=== PATIENT | female | born 1995 | race Hispanic/Latino ===

== ENCOUNTER 2024-04-14 21:33 | Emergency (ER) | payer SELFPAY ==
[~2024-04-14] VITALS: Ht 160 cm; Wt 49.9 kg
[2024-04-14 21:35] VITALS: BP 116/76; PULSE 129; RESP 20; TEMP 100.6
--- NOTE | 2024-04-14 21:59 | ERN ---
General Chief Complaint: Cough Stated Complaint: C/O COUGH, SORE THROAT, FEVER, CHILLS, BODYACHES Time Seen by MD: 21:40 Source: patient History of Present Illness Initial Comments Patient is a 29-year-old female coming in due to URI symptoms. Patient states that the symptoms began two days ago. Some of the symptoms include cough nasal congestion body aches and sore throat. Patient has been seen by her PCP yet. Allergies: Coded Allergies: No Known Drug Allergies (Unverified Allergy, Unknown, 04/09/19) Home Meds No Active Prescriptions or Reported Meds Past Medical History Past Medical History: No Pertinent History Past Surgical History: Female( History) LMP: Apr 01, 2024 ROS Dictation CONSTITUTIONAL: No chills, no fever, no weakness, no diaphoresis, no malaise. HEAD/FACE: No signs of trauma. EENT: No eye pain, no blurred vision, no tearing, no double vision, no ear pain, no ear discharge, no nose pain, no nasal congestion, no throat pain, no throat swelling, no mouth pain. RESPIRATORY: No cough, no orthopnea, no SOB, no stridor, no wheezing. CARDIOVASCULAR: No chest pain, no edema, no palpitations, no syncope. GASTROINTESTINAL/ABDOMINAL: No abdominal pain, no constipation, no diarrhea, no nausea, no vomiting. GENITOURINARY: No abnormal discharge, no dysuria, no frequent urination, no hematuria. No complaints of pain in the genitals. MUSCULOSKELETAL: No back pain, no gout, no joint pain, no joint swelling, no muscle pain, no muscle stiffness, no neck pain. INTEGUMENTARY: No change in color, no change in hair/nails, no dryness, no lesion, no lumps, no rash. NEUROLOGICAL/PSYCH: No anxiety, not depressed, no emotional problem, no headache, no numbness, no pre-existing deficit, no history of seizures, no tremors, no weakness. HEMATOLOGIC/LYMPHATIC: Not anemic, no history of blood clots, no apparent bleeding, no bruising, glands not swollen. All Systems Negative, Except as Noted. Physical Exam Physical Exam Dictation VITAL SIGNS: Reviewed. GENERAL APPEARANCE: Alert, oriented x3, no acute distress, obese. HEAD AND FACE: Non-traumatic. EYES: PERRL, pink conjunctivas, eyelid no trauma, anterior chamber clear. EARS: Pinnas intact and no signs of trauma or erythema. Ear canals clear and no discharge. TMs no erythema. NOSE: No discharge, no bleeding. OROPHARYNX: Mouth normal, teeth no caries, tongue pink. Pharynx clear, no erythema. Tonsils no exudates, no abscesses noted. Mucous membrane moist. NECK: Supple, non-tender, no thyromegaly, no masses, no JVD, no bruits. BREAST: Deferred. CHEST: No tenderness, no crepitus, no paradoxical movement, no retractions. LUNGS: Clear, well-ventilated, symmetric, no rales, no wheezing, no rhonchi, no stridor, good breath sounds bilaterally. HEART: Regular rate, regular rhythm, no murmur, no gallops. VASCULAR: No peripheral edema. ABDOMEN: Soft, positive bowel sounds, nondistended, no guarding, nontender, no rebound, no masses no hepatomegaly, no splenomegaly, no Ziegler's sign, no hernias. RECTAL: Deferred. GENITAL: Deferred. NEUROLOGICAL: Normal speech, gross motor function intact, gross sensory function intact. MUSCULOSKELETAL: Neck nontender, full range of motion, back nontender, full range of motion. EXTREMITIES: Nontender, full range of motion. SKIN: Color pink, dry, no turgor, no rash, no lacerations, no abrasions, no c ontusions. LYMPHATICS: Deferred. Results Laboratory and Microbiology Labs Reviewed?: Yes MDM MDM: Differential diagnosis: URI, flu, COVID, strep ED Course Orders Procedure Category Date Status Time Covid Rna Naat LAB 04/14/24 Verified 21:50 Influenza Type A & B, LAB 04/14/24 Verified Rapid 21:50 Rapid (Group A Strep) LAB 04/14/24 Verified 21:50 Vital Signs Date Time Temp Pulse Resp B/P (MAP) Pulse Ox O2 Delivery O2 Flow Rate FiO2 04/14/24 21:35 100.6 129 20 116/76 95 Room Air DX & DISP Departure Condition: Stable Scripts No Active Prescriptions or Reported Meds Referrals: SELF,REFERRAL (PCP) GUIDO GARRIDO MD Apr 14, 2024 21:59
--- NOTE | 2024-04-14 22:05 | NUR ---
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 PT NOT BACK YET.
--- NOTE | 2024-04-14 22:31 | NUR ---
CALLED FOR PT IN LOBBY AGAIN, NO RESPONSE; PT NOT FOUND IN LOBBY.
[2024-04-14 23:14] LABS: RAPID GROUP A STREP negative (NEGATIVE)
[2024-04-14 23:16] LABS: SARS-CoV-2, RNA, NAAT NEGATIVE SARS CoV-2 (NEGATIVE)
[2024-04-14 23:24] LABS: INFLUENZA TYPE A Negative For Type A (NEGATIVE); INFLUENZA TYPE B Negative For Type B (NEGATIVE)
== END 2024-04-14 22:31 | disposition left against medical advice (07) ==
LOC: EDH 21:39
DX: R05.9 Cough, unspecified (principal); J02.9 Acute pharyngitis, unspecified; R50.9 Fever, unspecified; Z20.822 Contact with and (suspected) exposure to COVID-19
CPT/HCPCS: 87635; 87804; 87880; 99283

== ENCOUNTER 2024-08-19 20:50 | Emergency (ER) | payer SELFPAY ==
[~2024-08-19] VITALS: Ht 157.5 cm; Wt 54.0 kg
--- NOTE | 2024-08-19 21:09 | ERN ---
ED Note History of Present Illness Stated Complaint: BACK PAIN,DISCHARGE Time Seen by MD: 20:51 Dictation: PATIENT IS A 29-YEAR-OLD FEMALE COMING IN TODAY WITH COMPLAINTS OF BACK PAIN AND STATES SHE FELT �A GUSH OF WATER COME OUT OF HER THIS MORNING�. SHE STATES SHE IS BETWEEN 14 AND 15 WEEKS , NO CARE, HAS NOT APPOINTMENT WITH DR. BECK/TE[employer] SUPPORT INTERNS[employer] ON SUNDAY. DENIES VAGINAL BLEEDING. Allergies: Coded Allergies: No Known Drug Allergies (Unverified Allergy, Unknown, 04/09/19) Home Meds No Active Prescriptions or Reported Meds Past Medical History Past Medical History: No Pertinent History Surgical History: : 4 Para: 3 Aborts: 0 RN Note Reviewed/Agreed w/PFSH: Yes Review of System Dictation CONSTITUTIONAL: NEGATIVE EXCEPT FOR HPI HEAD/FACE: NEGATIVE EXCEPT FOR HPI EENT: NEGATIVE EXCEPT FOR HPI RESPIRATORY: NEGATIVE EXCEPT FOR HPI GASTROINTESTINAL/ABDOMINAL: NEGATIVE EXCEPT FOR HPI GENITOURINARY: NEGATIVE EXCEPT FOR HPI VAGINAL DISCHARGE MUSCULOSKELETAL: NEGATIVE EXCEPT FOR HPI BACK PAIN INTEGUMENTARY: NEGATIVE EXCEPT FOR HPI NEUROLOGICAL/PSYCH: NEGATIVE EXCEPT FOR HPI HEMATOLOGIC/LYMPHATIC: NEGATIVE EXCEPT FOR HPI ALL SYSTEMS NEGATIVE, EXCEPT NOTED ABOVE. 13 POINT REVIEW OF SYSTEMS ASSESSED AND ALL NEGATIVE EXCEPT FOR ABOVE. Initial Vital Sign VS Vital Signs Date Time Temp Pulse Resp B/P (MAP) Pulse Ox O2 Delivery O2 Flow Rate FiO2 08/19/24 21:08 99.0 86 20 98/65 Room Air 08/19/24 22:16 99 0 21 Physical Exam Dictation VITAL SIGNS REVIEWED GENERAL APPEARANCE: ALERT, ORIENTED X 3, NO ACUTE DISTRESS, WELL DEVELOPED, NOURISHED. HEAD AND FACE: NON-TRAUMATIC. EYES: PERRL, PINK CONJUNCTIVAS, EYELID NO TRAUMA, ANTERIOR CHAMBER WITH ARCUS SENILIS. EARS: PINNAS INTACT AND NO SIGNS OF TRAUMA OR ERYTHEMA EAR CANALS CLEAR AND NO DISCHARGE TM NO ERYTHEMA NOSE: NO DISCHARGE, NO BLEEDING. OROPHARYNX: MOUTH NORMAL, TONGUE PINK, PHARYNX CLEAR,NO ERYTHEMA, TONSILS NO EXUDATES, NO ABSCESSES NOTED, MUCOUS MEMBRANE MOIST NECK: SUPPLE, NON-TENDER, NO THYROMEGALY, NO MASSES, NO JVD, NO BRUITS BREAST:DEFERRED CHEST:NO TENDERNESS, NO CREPITUS, NO PARADOXICAL MOVEMENT, NO RETRACTIONS LUNGS:CLEAR, WELL-VENTILATED, SYMMETRIC, NO RALES, NO WHEEZING, NO RHONCHI, NO STRIDOR, GOOD BREATH SOUNDS BILATERALLY HEART: REGULAR RATE, REGULAR RHYTHM, NO MURMUR, NO GALLOPS VASCULAR: NO PERIPHERAL EDEMA, ABDOMEN: SOFT, POSITIVE BOWEL SOUNDS, NONDISTENDED, NO GUARDING, NONTENDER, NO REBOUND, NO MASSES NO HEPATOMEGALY, NO SPLENOMEGALY, NO CISNERSO'S SIGN, NO HERNIAS. RECTAL: DEFERRED GENITAL: DEFERRED NEUROLOGICAL: NORMAL SPEECH, MOTOR FUNCTION INTACT, SENSORY FUNCTION INTACT MUSCULOSKELETAL: NECK NONTENDER, FULL RANGE OF MOTION, BACK NONTENDER, FULL RANGE OF MOTION, EXTREMITIES: NONTENDER, FULL RANGE OF MOTION SKIN: COLOR PINK, DRY, NO TURGOR, NO RASH, NO LACERATIONS, NO ABRASIONS, NO CONTUSIONS. LYMPHATIC: DEFERRED Results (Laboratory/Radiology) Laboratory/Radiology Laboratory Tests Test 08/19/24 21:58 08/19/24 22:16 White Blood Count 8.8 K/uL (4.8-10.8) Red Blood Count 4.25 MIL/uL (4.00-5.50) Hemoglobin 11.6 g/dL (12.0-16.0) L Hematocrit 34.3 % (36-48) L Mean Corpuscular Volume 80.7 fL (79-99) Mean Corpuscular Hemoglobin 27.3 pg (27.0-33.0) Mean Corpuscular Hemoglobin Concent 33.8 g/dL (32.0-36.0) Red Cell Distribution Width 13.0 % (11.0-15.5) Platelet Count 241 K/uL (130-400) Mean Platelet Volume 9.9 fL (7.5-10.5) Immature Granulocyte % (Auto) 0.3 % (0-1) Neutrophils (%) (Auto) 73.4 % (40.0-77.0) Lymphocytes (%) (Auto) 19.5 % (21.0-51.0) L Monocytes (%) (Auto) 4.6 % (3.0-13.0) Eosinophils (%) (Auto) 1.9 % (0.0-8.0) Basophils (%) (Auto) 0.3 % (0.0-5.0) Neutrophils # (Auto) 6.5 K/uL (1.8-7.7) Lymphocytes # (Auto) 1.7 K/uL (1.0-4.8) Monocytes # (Auto) 0.4 K/uL (0.1-1.0) Eosinophils # (Auto) 0.17 K/uL (0.00-0.70) Basophils # (Auto) 0.03 K/uL (0.00-0.20) Absolute Immature Granulocyte (auto 0.03 K/uL (0-1) Nucleated Red Blood Cells 0.0 % (0.0-0.19) Sodium Level 137 mmol/L (136-145) Potassium Level 3.5 mmol/L (3.5-5.1) Chloride Level 105 mmol/L (101-111) Carbon Dioxide Level 24 mmol/L (21-32) Blood Urea Nitrogen 11 mg/dL (7-18) Creatinine 0.6 mg/dL (0.5-1.0) Glomerular Filtration Rate Calc 125 mL/min (>90) Random Glucose 81 mg/dL (70-105) Total Calcium 9.0 mg/dL (8.5-10.1) Urine Color YELLOW (YELLOW) Urine Appearance CLEAR (CLEAR) Urine pH 6.0 (5.0-8.0) Urine Specific [place] 1.024 (1.001-1.031) Urine Protein NEGATIVE mg/dL (NEGATIVE) Urine Glucose (UA) NEGATIVE mg/dL (NEGATIVE) Urine Ketones 20 mg/dL (NEGATIVE) H Urine Occult Blood NEGATIVE (NEGATIVE) Urine Nitrate NEGATIVE (NEGATIVE) Urine Bilirubin NEGATIVE mg/dL (NEGATIVE) Urine Urobilinogen 0.2 mg/dL (0.2-1.0) Urine Leukocyte Esterase NEGATIVE Kitty/uL ULTRASOUND OB LIMITED INDICATION: Pelvic cramping. TECHNIQUE: Real-time transabdominal approach ultrasound examination of the pelvis was performed by the paralegal supervisor, and images subsequently made available for review. COMPARISON: None FINDINGS: Single live intrauterine gestation in longitudinal lie and breech presentation. heart rate = 167 beats per minute. Anterior grade 1 placenta without previa demonstrated. The amniotic fluid volume is normal at 9.6 cm. Limited anatomy secondary to early gestational age. Estimated sonographic gestational age = 15 weeks 0 days +/- 9 weeks. Estimated weight = 113 grams +/- 17 grams. IMPRESSION: 1. Single live intrauterine gestation in breech presentation, and with heart rate of 167 bpm. 2. Parameters as reported. Labs Reviewed?: Yes ED Course ED Course Orders Procedure Category Date Status Time Cbc With Differential LAB 08/19/24 Complete 21:06 Hcg,Quantitative LAB 08/19/24 In Process 21:06 Us Ob <14 Weeks US 08/19/24 Resulted 21:06 Type And Screen BBK 08/19/24 Complete 21:06 Basic Metabolic Panel LAB 08/19/24 In Process 21:06 Urinalysis Profile LAB 08/19/24 Complete 22:24 Vital Signs Date Time Temp Pulse Resp B/P (MAP) Pulse Ox O2 Delivery O2 Flow Rate FiO2 08/19/24 22:16 98.2 75 18 100/62 99 Room Air* 0 21 08/19/24 21:08 99.0 86 20 98/65 Room Air 2258/PATIENT 15 WEEKS 0 DAYS STRONG HEART TONES. DISCHARGED HOME TO FOLLOW UP WITH HER TECHNICAL SUPPORT INTERNSHIP DOCTOR IN THE NEXT 1-2 DAYS. Medical Decision Making MDM MEDICAL DISCHARGE MAKING BASED ON LABS FOR TO INCLUDE ULTRASOUND ULTRASOUND W STATES VIABLE IUP LABS ARE UNREMARKABLE PATIENT TOLD TYLENOL ONLY FOR PAIN, SEE HER TECHNICAL SUPPORT INTERNSHIP DOCTOR IN THE NEXT 1-2 DAYS. DX & DISP Disposition: Discharge Departure Impression: Primary Impression: Abdominal pain in Condition: Stable Scripts No Active Prescriptions or Reported Meds Additional Instructions: FOLLOW-UP WITH PRIMARY CARE PROVIDER IN 1 TO 2 DAYS. TAKE MEDICATIONS DIRECT ED HERE IN THE EMERGENCY ROOM. OKAY TO CONTINUE HOME MEDICATIONS UNLESS OTHERWISE DISCUSSED DURING YOUR VISIT IN THE EMERGENCY ROOM TODAY. RETURN TO YOUR NEAREST EMERGENCY ROOM IF SYMPTOMS WORSEN OR IF THERE IS NO IMPROVEMENT. CALL 911 IF YOU NEED IMMEDIATE ASSISTANCE. TAKE TYLENOL IMPG-AEC-NEXGYLH NEEDED AND IF NO CONTRAINDICATIONS ARE PRESENT. INCREASE ORAL HYDRATION. A WOUND CULTURE OR URINE CULTURE WAS ORDERED HERE IN THE EMERGENCY ROOM DEPARTMENT PLEASE FOLLOW-UP WITH PRIMARY CARE PROVIDER AND ADVISE THEM TO GET REPEAT PORTS FROM OUR FACILITY. IF YOU HAD ANY EDMUNDO WRAP/SPLINTS THAT WERE APPLIED HERE, PLEASE DO NOT REMOVE THEM UNTIL YOU SEE YOUR PRIMARY CARE OR SPECIALTY. PELVIC REST, NO SEX OF ANY KIND., TYLENOL ONLY FOR PAIN. CONTINUE YOUR VITAMINS. FOLLOW UP WITH THE YOUR TECHNICAL SUPPORT INTERNSHIP DOCTOR IN THE NEXT 1-2 DAYS FOR MANAGEMENT. Referrals: SELF,REFERRAL (PCP) Time of Disposition: 22:59 I have reviewed the case, and I agree with, Diagnosis and Plan [facility] [employer] August 19, 2024 21:09
--- NOTE | 2024-08-19 21:54 | HMCIMG ---
ULTRASOUND OB LIMITED INDICATION: Pelvic cramping. TECHNIQUE: Real-time transabdominal approach ultrasound examination of the pelvis was performed by the sales administration specialist, and images subsequently made available for review. COMPARISON: None FINDINGS: Single live intrauterine gestation in longitudinal lie and breech presentation. heart rate = 167 beats per minute. Anterior grade 1 placenta without previa demonstrated. The amniotic fluid volume is normal at 9.6 cm. Limited anatomy secondary to early gestational age. Estimated sonographic gestational age = 15 weeks 0 days +/- 9 weeks. Estimated weight = 113 grams +/- 17 grams. IMPRESSION: 1. Single live intrauterine gestation in breech presentation, and with heart rate of 167 bpm. 2. Parameters as reported.
--- NOTE | 2024-08-19 22:15 | NUR ---
PATIENT CAME BACK TO RM [address] [facility]
[2024-08-19 22:16] VITALS: BP 100/62; PULSE 75; RESP 18; TEMP 98.2; O2SAT 99
[2024-08-19 22:18] LABS: BASOPHILS # (AUTO) 0.03 K/uL (0.00-0.20); BASOPHILS % (AUTO) 0.3 % (0.0-5.0); EOSINOPHILS # (AUTO) 0.17 K/uL (0.00-0.70); EOSINOPHILS % (AUTO) 1.9 % (0.0-8.0); HEMATOCRIT 34.3 % (36-48); IMMATURE GRANULOCYTE ABSOLUTE 0.03 K/uL (0-1); LYMPHOCYTES # (AUTO) 1.7 K/uL (1.0-4.8); LYMPHOCYTES % (AUTO) 19.5 % (21.0-51.0); MEAN CORPUSCULAR HEMOGLOBIN 27.3 pg (27.0-33.0); MEAN CORPUSCULAR HGB CONC 33.8 g/dL (32.0-36.0); MEAN CORPUSCULAR VOLUME 80.7 fL (79-99); MONOCYTES # (AUTO) 0.4 K/uL (0.1-1.0); MONOCYTES % (AUTO) 4.6 % (3.0-13.0); NEUTROPHILS # (AUTO) 6.5 K/uL (1.8-7.7); NEUTROPHILS % (AUTO) 73.4 % (40.0-77.0); PLATELET COUNT (AUTO) 241 K/uL (130-400); RED BLOOD CELL COUNT(AUTO) 4.25 MIL/uL (4.00-5.50); WHITE BLOOD COUNT (AUTO) 8.8 K/uL (4.8-10.8)
[2024-08-19 22:28] LABS: CREATININE 0.6 mg/dL (0.5-1.0); POTASSIUM 3.5 mmol/L (3.5-5.1)
[2024-08-19 22:42] LABS: APPEARANCE,URINE CLEAR (CLEAR); BILIRUBIN,URINE NEGATIVE (NEGATIVE); COLOR,URINE YELLOW (YELLOW); GLUCOSE, URINE (UA) NEGATIVE (NEGATIVE); KETONES,URINE 20 mg/dL (NEGATIVE); LEUKOCYTE ESTERASE ,URINE NEGATIVE Leu/uL (NEGATIVE); NITRATE,URINE NEGATIVE (NEGATIVE); OCCULT BLOOD,URINE NEGATIVE (NEGATIVE); PROTEIN,URINE NEGATIVE (NEGATIVE); UROBILINOGEN,URINE 0.2 mg/dL (0.2-1.0)
[2024-08-19 22:47] LABS: ADD UA MICROSCOPIC NO
== END 2024-08-19 23:13 | disposition home or self-care (01) ==
LOC: EDH 20:50
DX: O26.892 Other specified pregnancy related conditions, second trimester (principal); R10.9 Unspecified abdominal pain; R10.2 Pelvic and perineal pain; Z3A.14 14 weeks gestation of pregnancy
CPT/HCPCS: 36415; 76801; 80048; 81003; 84702; 85025; 86850; 86900; 86901; 99284